=== PATIENT | male | born 1960 | race Caucasian/White ===

== ENCOUNTER 2019-09-17 17:30 | Emergency (ER) | payer BC ==
[~2019-09-17] VITALS: Ht 175.3 cm; Wt 90.9 kg
[2019-09-17 17:57] VITALS: Ht 175.3 cm; Wt 90.9 kg
[2019-09-17] MEDS ORDERED: CATAPRES0.3 MG PO (17:58)
[2019-09-17] MEDS ORDERED: DIOVAN160 MG PO (17:59)
[2019-09-17] MEDS ORDERED: NORVASC10 MG PO (17:59)
[2019-09-17] MEDS ORDERED: GABAPENTIN100 MG PO (18:00)
[2019-09-17] MEDS ORDERED: CRESTOR10 MG PO (18:00)
[2019-09-17] MEDS ORDERED: GLUCOPHAGE500 MG PO (18:00)
[2019-09-17] MEDS ORDERED: KEFLEX500 MG PO (21:51)
[2019-09-17] MEDS ORDERED: ULTRAM50 MG PO (21:58)
[2019-09-17 22:04] VITALS: BP 150/97
== END 2019-09-17 22:04 | disposition home or self-care (01) ==
LOC: EDBD 17:30 → D.ER 17:30
DX: S67.192A Crushing injury of right middle finger, initial encounter (principal); X58.XXXA Exposure to other specified factors, initial encounter; Y93.9 Activity, unspecified; Y92.9 Unspecified place or not applicable; E11.9 Type 2 diabetes mellitus without complications; Z79.84 Long term (current) use of oral hypoglycemic drugs; Z95.0 Presence of cardiac pacemaker; I10 Essential (primary) hypertension; S61.212A Laceration without foreign body of right middle finger without damage to nail, initial encounter